=== PATIENT | female | born 2000 | race Hispanic/Latino ===

== ENCOUNTER 2025-03-29 17:15 | Emergency (ER) | payer OTHER ==
[~2025-03-29] VITALS: Ht 157.5 cm; Wt 71.9 kg
== END 2025-03-29 19:53 | disposition home or self-care (01) ==
LOC: ED 17:15
DX: S50.11XA Contusion of right forearm, initial encounter (principal); V49.9XXA Car occupant (driver) (passenger) injured in unspecified traffic accident, initial encounter
CPT/HCPCS: 73090; 99283